=== PATIENT | male | born 1990 | race Caucasian/White ===

== ENCOUNTER 2017-09-08 18:19 | Emergency (ER) | payer BC, OTHER ==
[~2017-09-08] VITALS: Ht 190.5 cm; Wt 97.5 kg
--- NOTE | 2017-09-08 18:30 | ER Report ---
History and Physical Time Seen By MD: 18:30 HPI/ROS CHIEF COMPLAINT: Laceration HISTORY OF PRESENT ILLNESS: This is a 27-year-old male who presents to the emergency department for a laceration to the right lateral gluteus. Patient states he was shoveling roof today removing some snow he slipped on the roof and fell down and a bolt caught his snow pants and hold through the snow pants and several layers of clothing lacerating his right gluteus. Bleeding is controlled. Patient denies aches, chills, nausea or vomiting. No numbness or tingling. REVIEW OF SYSTEMS: Respiratory: No cough, no dyspnea. Cardiovascular: No chest pain, no palpitations. Gastrointestinal: No vomiting, no abdominal pain. Musculoskeletal: No back pain. Integument: As above. Allergies: Coded Allergies: No Known Drug Allergies (Unverified , 09/08/17) Home Meds No Active Prescriptions or Reported Meds Past Medical/Surgical History Chin has a past medical and surgical history of shoulder and neck injury. Reviewed Nurses Notes: Yes Constitutional Vital Sign - Last 24 Hours 09/08/17 09/08/17 18:27 19:50 Temp 98.4 Pulse 75 85 Resp 14 16 B/P (MAP) 114/61 132/78 (96) Pulse Ox 92 95 O2 Delivery Room Air Room Air Physical Exam General Appearance: The patient is alert, has no immediate need for airway protection and no current signs of toxicity. Eyes: Pupils equal and round no injection. Respiratory: Chest is non tender, lungs are clear to auscultation. Cardiac: regular rate and rhythm. Gastrointestinal: Abdomen is soft and non tender, no masses, bowel sounds normal. Musculoskeletal: Neck: Neck is supple and non tender. Extremities have full range of motion and are non tender. Skin: 4.5 cm laceration to the right lateral gluteus. DIFFERENTIAL DIAGNOSIS: After history and physical exam differential diagnosis was considered for laceration. Medical Decision Making ED Course/Re-evaluation ED Course The patient was admitted to a room. A history of physical or pain. Differential diagnoses were considered. After evaluation of the patient's wound was determined that he would be a candidate for laceration repair. The wound was repaired as noted below. Patient tolerated well. The patient was instructed to take ibuprofen or Tylenol as needed for discomfort. Patient was encouraged to follow-up with his primary care provider or return to the emergency department to have the sutures removed in 10-14 days. The wound was covered with bacitracin and an occlusive dressing. The patient had no other questions or concerns at this time and was discharged home. He was in agreement with this plan of care. Procedure: Laceration repair. Verbal consent was obtained from the patient. The 4.5 cm laceration on the right lateral gluteus. was anesthetized in the usual fashion. The wound was scrubbed, draped and explored to its base with a gloved finger. There were no deep structures involved. The wound was repaired with 15 simple interrupted 5- 0 Ethilon sutures. The wound repair was simple. The procedure was performed by Francois Blunt, Medical student. I did evaluate the laceration myself. Decision to Disposition Date: Sep 08, 2017 Decision to Disposition Time: 19:46 Depart Departure Latest Vital Signs Vital Signs Date Time Temp Pulse Resp B/P (MAP) Pulse Ox O2 Delivery O2 Flow Rate FiO2 09/08/17 19:50 85 16 132/78 (96) 95 Room Air 09/08/17 18:27 98.4 Impression: Primary Impression: Laceration Condition: Improved Disposition: HOME OR SELF-CARE New Scripts No Active Prescriptions or Reported Meds Patient Instructions: Acute Wound Care (ED), Laceration (ED) Additional Instructions: Drink plenty of water. Gets plenty of rest. Monitor the wound for signs of infection. May return to the emergency department or follow-up with your primary care provider in 10-14 days to have the sutures removed. May return to the emergency department for any other concerns or worsening symptoms. VERITO SMITH RN PEDIATRIC-BC Sep 08, 2017 18:30
[2017-09-08] MEDS ORDERED: DIPHTH/TETANUS/ACEL. PERTUSSIS IM ONLY ONE (18:35)
[2017-09-08 19:50] VITALS: BP 132/78
== END 2017-09-08 19:53 | disposition home or self-care (01) ==
LOC: ER 18:24
DX: S31.811A Laceration without foreign body of right buttock, initial encounter (principal); W00.0XXA Fall on same level due to ice and snow, initial encounter; Y93.H1 Activity, digging, shoveling and raking
CPT/HCPCS: 90471; 90715; 99283